=== PATIENT | male | born 1995 | race Caucasian/White ===

== ENCOUNTER 2019-03-13 01:08 | Emergency (ER) | payer BC ==
[~2019-03-13] VITALS: Ht 177.8 cm; Wt 68.0 kg
[2019-03-13 01:15] VITALS: BP_SYST 147
[2019-03-13 01:43] LABS: BILIRUBIN,URINE NEGATIVE (NEGATIVE); BLOOD, URINE NEGATIVE (NEGATIVE); CLARITY/URINE CLEAR (CLEAR); COLOR,URINE YELLOW (YELLOW); GLUCOSE,URINE NEGATIVE (NEGATIVE); KETONES,URINE TRACE (NEGATIVE); LEUKOCYTE ESTERASE ,URINE NEGATIVE (NEGATIVE); NITRITE, URINE NEGATIVE (NEGATIVE); PROTEIN URINE 3+ (NEGATIVE)
[2019-03-13 01:47] LABS: BACTERIA,URINE RARE /HPF (None Seen); HYALINE CASTS, URINE 0-10 /LPF (None Seen); RBC,URINE 0-3 /HPF (0-3); WBC,URINE 0-3 /HPF (0-3)
[2019-03-13 03:20] VITALS: BP_SYST 142
== END 2019-03-13 03:20 | disposition home or self-care (01) ==
LOC: SED 01:08
DX: N43.3 Hydrocele, unspecified (principal); K21.9 Gastro-esophageal reflux disease without esophagitis; E78.00 Pure hypercholesterolemia, unspecified
CPT/HCPCS: 76870-TC; 81000-TC; 99284

== ENCOUNTER 2020-01-04 23:14 | Emergency (ER) | payer BC ==
[~2020-01-04] VITALS: Ht 177.8 cm; Wt 68.0 kg
[2020-01-04 23:20] VITALS: BP_SYST 133
--- NOTE | 2020-01-04 23:20 | NUR ---
Patient triaged and placed in waiting room. VSS and patient appears in no acute distress at this time. Accompanied by GIRLFRIEND, awaiting available bed, and MD notified of need for MSE.
--- NOTE | 2020-01-05 00:47 | NUR ---
Patient called fo bed placement. Patient not in waiting room.
--- NOTE | 2020-01-05 01:01 | NUR ---
Patient called fo bed placement. Patient not in waiting room.
--- NOTE | 2020-01-05 01:16 | NUR ---
Patient called fo bed placement. Patient not in waiting room. Patient left without being seen.
== END 2020-01-05 01:16 | disposition left against medical advice (07) ==
LOC: SED 23:14
DX: F95.8 Other tic disorders (principal); Z53.21 Procedure and treatment not carried out due to patient leaving prior to being seen by health care provider